=== PATIENT | female | born 1955 | race Caucasian/White ===

== ENCOUNTER 2024-02-05 20:07 | Emergency (ER) | payer OTHER, MEDICARE, BC, SELFPAY ==
[2024-02-05 20:10] VITALS: BP 186/97
--- NOTE | 2024-02-05 21:00 | ED.GENMED ---
History of Present Illness
General
Chief Complaint: Musculo-Skeletal Complaint
Source: patient
Exam Limitations: none
Time Seen by Provider: 02/05/24 20:37
Nursing documentation reviewed up to this point in time: agreed with
Travel History
Have you had any contact with someone who has COVID-19?: No
Do you have any symptoms of coronavirus? Fever > 100 degrees, chills, cough, shortness of breath, sore throat, loss of taste or smell, muscle aches, or headache?: No
History of Present Illness
History of Present Illness:
Patient is a 68 year old female presenting for evaluation of right index finger injury. Patient states that she was was getting into her car around 630PM this evening when he finger got jammed between her car door and sideview mirror. She
immediately placed ice on the finger. Pain persisted and she began to develop swelling and bruising of the right index finger. She went to urgent care for evaluation but they referred to the emergency department since they did not have an x-ray
milieu technician today. She denies any numbness/tingling of right index finger. No LOC. She did not hit her head. She denies sustaining any other injuries during incident. .
Past History
Past History
ED Past Medical History: Other (IBS, fibromyalgia, hypothyroid)
Social History
Tobacco: Non-smoker
Phy Exam
Physical Exam
Physical Exam:
General: In no apparent distress, nontoxic appearing
Vitals: Hypertensive, otherwise vital signs stable, afebrile
HEENT: protecting airway
Neck: appears supple
CV: No evidence of cyanosis
Resp: No accessory muscle use
Abd: Non-distended
Extremities: Bruising and swelling noted near MCP joint of right index finger on the lateral aspect with associated tenderness palpation; right finger neurovascular intact; full range of motion both flexion/extension against resistance; no
lacerations or cuts to skin
Neuro: alert and oriented; grossly intact
Psych: Normal affect
Skin: Intact, bruising to right index finger as noted above
Course
Orders/Labs/Results
Orders:
Orders
02/05/24 20:12
Finger(s)/Thumb 2 View Rt [CR Finger(s)/thumb Min 2 Vw Rt] Urgent
Comment:
Reason For Exam: pain/swelling/injury
Indicate Which Finger:: Index Finger
Vital Signs
Initial and Last Documented VS:
Initial Vital Signs
Temp Pulse Resp BP Pulse Ox
97.8 F 100 17 186/97 99
02/05/24 20:10 02/05/24 20:10 02/05/24 20:10 02/05/24 20:10 02/05/24 20:10
Last Documented Vital Signs
Temp Pulse Resp BP Pulse Ox
97.8 F 100 17 186/97 99
02/05/24 20:10 02/05/24 20:10 02/05/24 20:10 02/05/24 20:10 02/05/24 20:10
MDM/Problems Addressed
Differential Diagnosis Includes:
Fracture, sprain, contusion
MDM/Problems Addressed:
Patient is 68-year-old female presenting for evaluation of right index finger injury occurring a few hours ago when it was caught between car door and side view mirror. Patient is hypertensive, otherwise vital signs are stable. She is in no
apparent distress on exam. Physical exam as documented above. She does have distinct area of bruising and swelling of right index finger near MCP joint at lateral aspect. Range of motion intact against resistance. Right index finger
neurovascular intact. There are no lacerations or cuts to skin. Patient declines analgesia at this time. X-rays negative for acute fracture or dislocation. Suspect likely contusion.
Patient placed in finger splint. Stable for discharge with return precautions, NSAIDs, ice, splint for comfort. Primary care follow-up as needed
Chronic conditions affecting care:
N/A
Acute Exacerbation and/or Progression of Chronic Illness:
N/A
*Radiology
Radiology exam reviewed: preliminary read by ED provider and radiology read reviewed
*Pulse Oximetry
Patient hypoxic: no
*EKG
Interpreted by ED Provider?: NA
*Lidder Interpretation
Rate: Lidder- N/A
*Critical Care Note
Total Time (30-74mins, 75-104mins- exclusive of procedures): Not Applicable
ED Attending Note
-
Portions of this chart may have been created with voice recognition software.� Occasional wrong word or��sound alike� substitutions may have occurred due to the inherent limitations of voice recognition software.
Discharge Plan
Departure
Patient Disposition: Home (Routine Discharge)
Date of Disposition: 02/05/24
Time of Disposition: 21:28
Patient with high blood pressure during this ER visit?: Yes
Condition: Good
Covid-19: Not Applicable
Discharge Problem:
Injury of right index finger
Instructions: Common Finger Injuries (DC)
Prescriptions:
No Action
amitriptyline 50 MG tablet
50 mg PO HS
levothyroxine 50 MCG tablet
50 mcg PO DAILY
Referrals:
Moose Romeo MD [Family Provider] -
Activity Restrictions/Additional Instructions:
-Return to the emergency department with any high fever, chest pain, shortness of breath, severe pain, severe swelling, numbness/tingling in right finger or hand, worsening in current symptoms, or any other concerns
-As discussed - your xray in the emergency department did not show any fractures of the right index finger. If symptoms persist or worsen - you should f/u with primary care provider
-You can take motrin/tylenol as needed for discomfort. Ice finger and keep in splint until heals
Interventions
Interventions:
*Risk Screen - Suicide Last Done: 02/05/24 20:10
*General Assessment Last Done: 02/05/24 20:10
*Neglect/Abuse Screening Last Done: 02/05/24 20:10
*ED COVID-19 Vaccine History Last Done: 02/05/24 20:10
*Nursing Disposition Last Done: 02/05/24 21:38
ED-Musculoskeletal Assessment Last Done: 02/05/24 20:42
Discharge Date and Time
Discharge Date/Time: 02/05/24 21:38
Print Language: KOSOVAN
== END 2024-02-05 21:38 | disposition home or self-care (01) ==
LOC: EMR 20:07
PROVIDERS: EMERGENCY PHYSICIAN Emergency Medicine; FAMILY PHYSICIAN Family Medicine
DX: S60.940A Unspecified superficial injury of right index finger, initial encounter (principal); W23.0XXA Caught, crushed, jammed, or pinched between moving objects, initial encounter; R03.0 Elevated blood-pressure reading, without diagnosis of hypertension
CPT/HCPCS: 99283; 29130; 73140

== ENCOUNTER → 2024-09-07 08:50 | Outpatient (REF) | payer MEDICARE, BC, SELFPAY | LOC: RAD 08:50 | PROVIDERS: ATTENDING PHYSICIAN Internal Medicine Gastroenterology; FAMILY PHYSICIAN Family Medicine | DX: K76.0 Fatty (change of) liver, not elsewhere classified (principal) | CPT/HCPCS: 76700 ==

== ENCOUNTER → 2024-09-25 14:33 | Outpatient (REF) | payer MEDICARE, BC, SELFPAY | LOC: WDC 14:33 | PROVIDERS: ATTENDING PHYSICIAN Nurse Practitioner Family; FAMILY PHYSICIAN Family Medicine | DX: Z12.31 Encounter for screening mammogram for malignant neoplasm of breast (principal) | CPT/HCPCS: 77063; 77067 ==

== ENCOUNTER → 2024-12-03 09:51 | Outpatient (REF) | payer MEDICARE, BC, SELFPAY ==
[2024-12-03 11:08] LABS: % Basophils 0.9 % (0-2); % Eosinophils 2.9 % (0-6); % Immature Granulocytes 0.2 % (0-0.5); % Lymphocytes 27.6 % (20.5-51.1); % Monocytes 9.2 % (1.7-9.3); % Neutrophils 59.2 % (42.2-75.2); Absolute Eosinophils 0.1 10^3/uL (0-0.7); Absolute Lymphocytes 1.2 10^3/uL (1.2-3.4); Absolute Monocytes 0.4 10^3/uL (0.1-0.6); Absolute Neutrophils 2.6 10^3/uL (1.4-6.5); Hematocrit 38.5 % (37.0-47.0); Hemoglobin 12.9 g/dL (12.0-16.0); Mean Corp Hgb Conc. 33.5 g/dL (33.0-37.0); Mean Corpuscular Hgb 31.1 pg (27.0-31.0); Mean Corpuscular Volume 92.8 fL (81.0-99.0); Nucleated Red Blood Cells % 0 %; Platelet Count 261 10^3/uL (130-400); Red Blood Cell Count 4.15 10^6/uL (4.20-5.40); Red Cell Dist. Width 12.5 % (11.5-14.5); White Blood Cell Count 4.5 10^3/uL (4.8-10.8)
[2024-12-03 11:43] LABS: ALT (SGPT) 25 U/L (0-35); AST (SGOT) 27 U/L (14-36); Albumin 4.6 g/dl (3.5-5.0); Alkaline Phosphatase 94 U/L (38-126); Blood Urea Nitrogen 19 mg/dl (7-17); Calcium 9.9 mg/dl (8.4-10.2); Carbon Dioxide 26 mmol/L (22-30); Chloride 100 mmol/L (98-107); Glucose 103 mg/dl (70-99); HDL Cholesterol 94 mg/dl; LDL Cholesterol, Calculated 146 mg/dl; Potassium 4.3 mmol/L (3.5-5.1); Sodium 135 mmol/L (135-145); Total Bilirubin 0.7 mg/dl (0.2-1.3); Total Cholesterol 256 mg/dl (50-199); Total Protein 6.9 g/dl (6.3-8.2); Triglyceride 82 mg/dl (10-149); Very Low Density Lipoprotein 16 mg/dl (0-30); eGFR > 60.00
[2024-12-03 11:51] LABS: Free T4 1.26 ng/dl (0.78-2.19)
[2024-12-03 12:05] LABS: TSH 2.61 uIU/ml (0.47-4.68)
== END ==
LOC: REG 09:51
PROVIDERS: ATTENDING PHYSICIAN Family Medicine
DX: E78.2 Mixed hyperlipidemia (principal); I10 Essential (primary) hypertension; E03.9 Hypothyroidism, unspecified
CPT/HCPCS: 36415; 80053; 80061; 84439; 84443; 85025

== ENCOUNTER 2024-12-16 06:21 | Day surgery (SDC) | payer MEDICARE, BC, SELFPAY | END 2024-12-16 15:29 | disposition home or self-care (01) | LOC: GI 06:21 | PROVIDERS: ATTENDING PHYSICIAN Internal Medicine Gastroenterology | DX: Z12.11 Encounter for screening for malignant neoplasm of colon (principal); D12.1 Benign neoplasm of appendix; D12.2 Benign neoplasm of ascending colon; D12.3 Benign neoplasm of transverse colon; K63.89 Other specified diseases of intestine; Q43.8 Other specified congenital malformations of intestine; K64.8 Other hemorrhoids; Z86.0101 Personal history of adenomatous and serrated colon polyps | CPT/HCPCS: 45385; 45380; 88305 ==

== ENCOUNTER → 2025-10-14 07:18 | Outpatient (REF) | payer MEDICARE, BC, SELFPAY | LOC: HWRAD 07:18 | PROVIDERS: ATTENDING PHYSICIAN Obstetrics & Gynecology; FAMILY PHYSICIAN Family Medicine | DX: M85.80 Other specified disorders of bone density and structure, unspecified site (principal); Z78.0 Asymptomatic menopausal state | CPT/HCPCS: 77080 ==

== ENCOUNTER → 2025-10-19 17:58 | Outpatient (REF) | payer MEDICARE, BC, SELFPAY | LOC: WDC 17:58 | PROVIDERS: ATTENDING PHYSICIAN Obstetrics & Gynecology; FAMILY PHYSICIAN Family Medicine | DX: Z12.31 Encounter for screening mammogram for malignant neoplasm of breast (principal) | CPT/HCPCS: 77063; 77067 ==